=== PATIENT | female | born 1990 | race Two or more races ===

== ENCOUNTER 2022-12-09 17:24 | Emergency (ER) | payer BC ==
[~2022-12-09] VITALS: Ht 157.5 cm; Wt 50.3 kg
== END 2022-12-09 21:04 | disposition home or self-care (01) ==
LOC: ER 17:24
DX: E86.0 Dehydration (principal); T67.09XA Other heatstroke and sunstroke, initial encounter; R11.2 Nausea with vomiting, unspecified